=== PATIENT | male | born 1995 | race Caucasian/White ===

== ENCOUNTER 2025-04-21 13:14 | Inpatient (IN) | payer OTHER, SELFPAY ==
[2025-04-21] VITALS (26 sets, daily range): BP systolic 121–141; BP diastolic 72–92; PULSE 57–98; TEMP 36.7–36.9; O2SAT 86–100; BMI 28.3; BMI 28.1
--- NOTE | 2025-04-21 13:22 | ECG_ITS ---
[facility] Test Date: 2025-04-21 Pat Name: MAGDIEL ROBERTS Department: Room: - Gender: Male [employer]: : 1995 Requested By: [id number] Order Number: [id number] Reading MD: MICKY HASTINGS M.D. Measurements Intervals [place] Rate: 84 P: 90 TN: 142 QRS: 75 QRSD: 100 T: 31 QT: 376 QTc: 417 Interpretive Statements 1100 Sinus rhythm 1102 Sinus arrhythmia 9110 normal ECG Compared to ECG 05/09/2018 05:00:06 Junctional rhythm no longer present Electronically Signed On 04-21-2025 17:59:57 EDT by MICKY HASTINGS M.D.
--- NOTE | 2025-04-21 13:22 | ED_ITS ---
HPI - Seizure General Chief Complaint: Seizure Stated Complaint: WITHDRAWL SEIZURE Time Seen by Provider: 04/21/25 13:21 Source: patient Mode of arrival: ambulance History of Present Illness HPI Narrative: The patient is a 30-year-old male who is trying to detox himself from alcohol, drink of alcohol was 2 days ago, patient mentioned that he was able to detox himself few months ago with no difficulty as outpatient. This time apparently according to the girlfriend who called the ambulance the patient had a seizure. The girlfriend was not at the bedside but apparently by the time the EMS arrived the patient was postictal, there was no tongue biting but the patient had a contusion to the back of the head The girlfriend did tell the EMS that the patient had his upper and lower extremity moving and he was unconscious for few seconds The patient at this moment denies any complain Related Data Home Medications ?Medication ?Instructions ?Recorded ?Confirmed bupropion HCl 150 mg 24 hr tablet, 150 mg PO QAM 04/2104/21/25 extended release cetirizine 10 mg tablet 10 mg PO DAILY 04/21/2501/14 Allergies Allergy/AdvReac Type Severity Reaction Status Date / Time venom-honey bee Allergy Severe Unknown Verified 04/21/25 13:21 Review of Systems ROS Status of ROS 10 or more systems reviewed and unremark able except as noted in history and below PFSH PFS Medical History Femur fracture ?S72.90XA - Unspecified fracture of unspecified femur, initial encounter for closed fracture (ICD-10) AA (alcohol abuse) ?F10.10 - Alcohol abuse, uncomplicated (ICD-10) Social History Little interest or pleasure in doing things: not at all Feeling down, depressed, or hopeless: not at all Exam Narrative Exam Narrative: Nurses notes and vital signs reviewed and patient is not hypoxic. General: Well-appearing and in no apparent distress. Skin: Warm, dry, no pallor noted. No rash. Head: Normocephalic, small contusion to the posterior occipital area measuring almost 1 to 2 cm oval in shape with abrasion on top of it, Neck: Supple, non-tender. Eye: Pupils are equal, round and EOMI. No scleral icterus. Ears, Nose, Mouth, and Throat: TM are clear, no nasal mucosal hypertrophy. Oral mucosa is moist, no posterior oropharynx erythema, uvula is mid-line Cardiovascular: Regular Rate and Rhythm without murmur, gallop or rub. Respiratory: No accessory muscle use or respiratory distress. Lungs are clear to auscultation, no wheezing, rales or rhonchi Chest Wall: no tenderness Back: No midline thoracic or lumbar vertebral tenderness. No CVA tenderness Musculoskeletal: normal ROM, no calf or popliteal tenderness, no lower extremity edema/swelling GI: Abdomen is soft, non-distended. Normal bowel sounds. No masses appreciated. No tenderness to palpation. No rebound, guarding, or rigidity noted. Neurological: A&O x4. No cranial nerve dysfunction observed. No truncal ataxia. Moves all extremities. Sensation intact. Psychiatric: Cooperative and interactive. Normal mood and affect. Constitutional Vital Signs, click to edit/add: Last Vital Signs Temp 98.3 F 04/21/25 13:16 Pulse 98 H 04/21/25 13:16 Resp 16 04/21/25 13:16 BP 136/77 04/21/25 13:53 Pulse Ox 98 04/21/25 13:16 O2 Del Method Room Air 04/21/25 13:16 Course Vital Signs Vital signs: Vital Signs Temperature 98.3 F 04/21/25 13:16 Pulse Rate 98 H 04/21/25 13:16 Respiratory Rate 16 04/21/25 13:16 Blood Pressure 140/80 04/21/25 13:16 Pulse Oximetry 98 04/21/25 13:16 Oxygen Delivery Method Room Air 04/21/25 13:16 Temperature 98.3 F 04/21/25 13:16 Pulse Rate 98 H 04/21/25 13:16 Respiratory Rate 16 04/21/25 13:16 Blood Pressure 136/77 04/21/25 13:53 Pulse Oximetry 98 04/21/25 13:16 Oxygen Delivery Method Room Air 04/21/25 13:16 MDM - Seizure MDM Narrative Medical decision making narrative: The patient EKG in the ER showing sinus rhythm with a heart rate of [address] elevation or depression CBC and chemistry showed no acute pathology except with elevated LFTs AST and ALT as well as bilirubin alk phos with elevated which mostly secondary to alcohol abuse The patient in the ER did not have any complaints Since the patient is still in withdrawal he will be admitted for alcohol withdrawal and seizure for observation CT of the head showed no acute pathology Patient case discussed with Dr. Babb and he agreed with above-mentioned plan Lab Data Labs: Lab Results 04/21/25 Range/Units 13:29 WBC 5.0 (4.0-11.0) 10^3/uL RBC 4.81 (4.70-6.10) 10^6/uL Hgb 15.6 (14.0-18.0) g/dL Hct 47.0 (42.0-54.0) % MCV 97.7 H (80.0-94.0) fL MCH 32.4 (25.9-34.0) pg MCHC 33.2 (29.9-35.2) g/dL RDW 12.6 (11.0-15.0) % Plt Count 95 L (150-450) 10^3/uL MPV 11.7 (9.5-13.5) fL Neut % (Auto) 55.5 (43.0-75.0) % Lymph % (Auto) 28.8 (20.5-60.0) % [place] % (Auto) 13.1 H (1.7-12.0) % Eos % (Auto) 0.8 L (0.9-7.0) % Baso % (Auto) 1.6 (0.2-2.0) % Neut # (Auto) 2.8 (1.4-6.5) 10^3/uL Lymph # (Auto) 1.5 (1.2-3.8) 10^3/uL [place] # (Auto) 0.7 (0.3-0.8) 10^3/uL Eos # (Auto) 0.0 (0.0-0.7) 10^3/uL Baso # (Auto) 0.1 (0.0-0.1) 10^3/uL Abs Immat Gran (auto) 0.01 (0.00-0.03) 10^3/uL Imm/Tot Granulo (auto) 0.2 (0.0-0.5) % PT 10.6 (9.0-11.6) sec INR 1.00 Sodium 138 (136-145) mmol/L Potassium 4.1 (3.5-5.1) mmol/L Chloride 98 (98-107) mmol/L Carbon Dioxide 19.1 L (21.0-32.0) mmol/L Anion Gap 25.0 BUN 5.0 L (7.0-18.0) mg/dL Creatinine 1.05 (0.70-1.30) mg/dL Est GFR ( Amer) >60 (>=60 mL/min/1.73m^2) Est GFR (Non-Af Amer) >60 (>=60 mL/min/1.73m^2) BUN/Creatinine Ratio 4.8 Glucose 157 H (74-106) mg/dL Calcium 10.0 (8.5-10.1) mg/dL Magnesium 1.8 (1.8-2.4) mg/dL Total Bilirubin 1.7 H (0.2-1.0) mg/dL AST 236 H (15-37) U/L ALT 170 H (16-63) U/L Alkaline Phosphatase 176 H (46-116) U/L Troponin I High Sens <4.0 L (4.0-76.1) pg/mL Total Protein 8.3 H (6.4-8.2) g/dL Albumin 3.9 (3.4-5.0) g/dL Globulin 4.4 g/dL Albumin/Globulin Ratio 0.9 Ethanol Quant <3 mg/dL Discharge Plan Discharge Chief Complaint: Seizure Clinical Impression: Seizure, Alcohol withdrawal Patient Disposition: Admitted to [facility], OBS Prescriptions / Home Meds: No Action bupropion HCl 150 mg tablet extended release 24 hr 150 mg PO QAM cetirizine 10 mg tablet 10 mg PO DAILY Print Language: [place] Referrals: Physician,Non-Staff, MD [Primary Care Provider] - 1 week
--- NOTE | 2025-04-21 13:23 | CT_ITS ---
The [address] [address] Patient Name: MAGDIEL ROBERTS MRN: [id number] date: 1995 Sex: M Assigned Patient Location: ED.MAIN Current Patient Location: ED.MAIN Accession/Order Number: [id number] Exam Date: 04/21/2025 14:48 Report Date: 04/21/2025 14:54 At the request of: JULI CORNEJO MD Procedure: CT head/brain wo con CT head/brain wo con 04/21/2025 2:21 PM SIGNS AND SYMPTOMS: ^seizure TECHNIQUE:Multi-detector CT axial slices of the brain were obtained without IV contrast. CT was performed with one or more of the following dose reduction techniques: Automated exposure control, adjustment of the mA and/or kV according to patient size, or use of iterative reconstruction technique. COMPARISON: None. FINDINGS: There is no shift of the midline structures, acute intracranial bleeding, mass effects, or evidence of acute ischemia. The ventricular system is normal in size. The brainstem and the cerebellum are unremarkable. The visualized intraorbital contents, the visualized paranasal sinuses, and the infratemporal soft tissues show no acute abnormality. The osseous structures in the skull base and the calvarium show no abnormality. CT/CT head/brain wo con IMPRESSION: Normal noncontrasted CT brain. Impression dictated by: Ankit Whitfield M.D. 04/21/2025 2:54 PM Dictation Location: [place] [address] Electronically authenticated by: [id number] Y Date: 04/21/2025 14:54
[2025-04-21] MEDS: 0.9 % SODIUM CHLORIDE 1,000 ML 1000 ML IV (13:34)
[2025-04-21 13:39] LABS: Basophils Absolute Auto 0.1 10^3/uL (0.0-0.1); Basophils Percent Auto 1.6 % (0.2-2.0); Eosinophils Percent Auto 0.8 % (0.9-7.0); Hemoglobin 15.6 g/dL (14.0-18.0); Immature Granulocytes Abs Auto 0.01 10^3/uL (0.00-0.03); Immature Granulocytes Pct Auto 0.2 % (0.0-0.5); Lymphocytes Absolute Auto 1.5 10^3/uL (1.2-3.8); Lymphocytes Percent Auto 28.8 % (20.5-60.0); Mean Corpuscular HGB Conc 33.2 g/dL (29.9-35.2); Mean Corpuscular Hemoglobin 32.4 pg (25.9-34.0); Mean Corpuscular Volume 97.7 fL (80.0-94.0); Mean Platelet Volume 11.7 fL (9.5-13.5); Monocytes Absolute Auto 0.7 10^3/uL (0.3-0.8); Monocytes Percent Auto 13.1 % (1.7-12.0); Neutrophils Absolute Auto 2.8 10^3/uL (1.4-6.5); Neutrophils Percent Auto 55.5 % (43.0-75.0); Platelet Count 95 10^3/uL (150-450); Red Blood Count 4.81 10^6/uL (4.70-6.10); Red Cell Distribution Width 12.6 % (11.0-15.0)
[2025-04-21 13:49] LABS: Prothrombin Time 10.6 sec (9.0-11.6)
[2025-04-21 13:51] LABS: Alanine Aminotransferase 170 U/L (16-63); Albumin Globulin Ratio 0.9; Albumin Level 3.9 g/dL (3.4-5.0); Alkaline Phosphatase 176 U/L (46-116); Aspartate Amino Transferase 236 U/L (15-37); BUN Creatinine Ratio 4.8; Bilirubin Total 1.7 mg/dL (0.2-1.0); Carbon Dioxide 19.1 mmol/L (21.0-32.0); Chloride 98 mmol/L (98-107); Estimated GFR (African America >60 (>=60 mL/min/1.73m^2); Estimated GFR (Non-African Ame >60 (>=60 mL/min/1.73m^2); Globulin 4.4 g/dL; Glucose 157 mg/dL (74-106); Magnesium 1.8 mg/dL (1.8-2.4); Potassium 4.1 mmol/L (3.5-5.1); Sodium 138 mmol/L (136-145); Total Protein 8.3 g/dL (6.4-8.2)
[2025-04-21 13:53] LABS: Ethanol <3 mg/dL; Troponin I High Sensitivity <4.0 pg/mL (4.0-76.1)
--- NOTE | 2025-04-21 16:38 | P.HP_ITS ---
HPI H&P: HPI History of Present Illness Chief complaint: WITHDRAWL SEIZURE, ETOH WITHDRAWL Narrative: Pt was seen a month ago trying to get off of alcohol and some depression , treated with wellbutrin, Pt had no benefit with wellbutrin from alcohol standpoint but did help his depression. THis am had tonic clonic seizure and presente dto ER - no hx seizure prior when I saw pt on med surg floor, resting comfortably in bed, girlfriend is bedside, medications given so far have helped his tremor and anxiety from his alcohol withdrawal does not member the events of earlier in the day consistent with postictal state Opioid HPI Opioid Management Most Recent Pain and Opioid Data: Last Pain Scale 0 Today, 15:52 Last Pain Assessment Today, 15:52 Last ORT Total Score 10 Today, 15:52 Last ORT Risk Category High Risk Today, 15:52 Review of Systems ROS Status of ROS 10 or more systems reviewed and unremark able except as noted in history and below PFSH PFSH Medical History Femur fracture ?S72.90XA - Unspecified fracture of unspecified femur, initial encounter for closed fracture (ICD-10) AA (alcohol abuse) ?F10.10 - Alcohol abuse, uncomplicated (ICD-10) Family History (Updated 04/21/25 @ 16:21 by Sariah Conte) Uncle Family history of COPD (chronic obstructive pulmonary disease) Grandmother Family history of diabetes mellitus Mother Family history of diabetes mellitus Family history of hypertension Social History (Updated 04/21/25 @ 16:23 by Sariah Conte) Within the past year, how often did you have a drink containing alcohol: 4 or more times a week Within the past year, how many standard drinks containing alcohol did you have on a typical day: 10 or more Within the past year, how often did you have six or more drinks on one occasion: daily or almost daily Total score: 12 Score interpretation: A score of 4 or more indicates drinking is likely to affect patient's safety. Smoking status: Current every day smoker Do you use any of these nicotine containing products: vaping products Second hand tobacco smoke exposure: No Non-prescribed substance use: denies use Previous occupational history: unemployed Known occupational exposures/hazards: No Highest level of school completed/degree received: high school graduate Do you want help with school or training: No Are you now , , , , never or living with a partner: living with partner In a typical week, how many times do you talk on the telephone with family, friends, or neighbors: once per week How often do you get together with friends or relatives: once per week How often do you attend mu-ism or voodoo services: never Do you belong to any clubs or organizations such as mu-ism groups unions, fraternal or athletic groups, or school groups: no Total score: 1 Score interpretation: A score of less than or equal to 1 indicates the most socially isolated. Little interest or pleasure in doing things: not at all Feeling down, depressed, or hopeless: not at all Feel stressed/tense/nervous/anxious/difficulty sleeping: not at all Due to disability, difficulty making decisions: No Do you think of yourself as: straight/heterosexual Gender Identity: male Meds Home Medications and Allergies Home Medications ?Medication ?Instructions ?Recorded ?Confirmed ?Type bupropion HCl 150 mg 24 hr tablet, 150 mg PO QAM 04/2104/21/25 History extended release cetirizine 10 mg tablet 10 mg PO DAILY 04/21/2501/14 History Allergies Allergy/AdvReac Type Severity Reaction Status Date / Time venom-honey bee Allergy Severe Unknown Verified 04/21/25 13:21 Exam Constitutional Vital Signs, click to edit/add: Last Vital Signs Temp 98.1 F 04/21/25 15:52 Pulse 69 04/21/25 15:52 Resp 16 04/21/25 15:52 BP 141/74 04/21/25 15:52 Pulse Ox 98 04/21/25 15:52 O2 Del Method Room Air 04/21/25 15:52 Documenting provider has reviewed patient's vital signs: yes Common normals: no apparent distress Respiratory Common normals: normal respiratory effort and no retractions Cardio Common normals: no JVD and regular rhythm GI Common normals: Normal to inspection, nondistended, normoactive bowel sounds present, soft to palpation and non-tender Extremity Common normals: normal to inspection, full ROM and normal capillary refill Results Labs Labs: Short CBC 04/21/25 Range/Units 13:29 WBC 5.0 (4.0-11.0) 10^3/uL Hgb 15.6 (14.0-18.0) g/dL Hct 47.0 (42.0-54.0) % Plt Count 95 L (150-450) 10^3/uL BMP 04/21/25 13:29 Sodium 138 Potassium 4.1 Chloride 98 Carbon Dioxide 19.1 L BUN 5.0 L Creatinine 1.05 Glucose 157 H Calcium 10.0 Liver Function 04/21/25 Range/Units 13:29 Total Bilirubin 1.7 H (0.2-1.0) mg/dL AST 236 H (15-37) U/L ALT 170 H (16-63) U/L Alkaline Phosphatase 176 H (46-116) U/L Albumin 3.9 (3.4-5.0) g/dL Assessment and Plan Assessment and Plan (1) Alcohol withdrawal: (2) Seizure: (3) AA (alcohol abuse): Plan Admission findings: Patient in a postictal state consistent with seizure, workup in ER unremarkable other than mild dehydration and the elevated liver function test related to alcohol abuse, patient will be admitted for workup and treatment of same Alcohol abuse with hepatitis leading to seizure complicated by the use of Wellbutrin-seizure precautions, IV fluids, aggressively treat the alcohol withdrawal symptoms with phenobarbital and Librium, as needed Valium Alcoholic hepatitis-check liver enzymes in the morning and check ammonia level Depression-will use alternate medication for his depression, Wellbutrin has a risk of seizures Admission status: Patient replaced inpatient status patient having significant alcohol withdrawal syndrome and medically necessary treatment will likely span 2 midnights. Inpatient status
--- NOTE | 2025-04-21 17:09 | PC.NURSE ---
pt refusing aditya kothari at this time
[2025-04-21] MEDS: MULTIVITAMIN TABLET 1 TAB PO (17:13)
[2025-04-21] MEDS: PANTOPRAZOLE SODIUM 40 MG VIAL IV (17:13)
[2025-04-21] MEDS: PHENobarbitaL 32.4 MG TABLET 64.8 MG PO ×2 (17:13→21:10)
[2025-04-21] MEDS: CLORDIAZEPOXIDE HCl 25 MG CAPSULE PO ×2 (17:13→21:11)
[2025-04-21] MEDS: LACTATED RINGER'S SOLUTION 1,000 ML 100 ML IV (17:13)
[2025-04-21] MEDS: THIAMINE MONONITRATE (VIT B1) 100 MG TABLET PO (17:13)
[2025-04-21 17:36] LABS: Ammonia 18 umol/L (11-32)
[2025-04-21 17:37] LABS: Amylase 84 U/L (25-115)
[2025-04-21] MEDS: ROPINIROLE HCL 1 MG TABLET PO (21:10)
[2025-04-21] MEDS: CLONIDINE HCL 0.1 MG TABLET PO (21:11)
[2025-04-22] VITALS (21 sets, daily range): BP systolic 115–139; BP diastolic 69–80; PULSE 40–85; TEMP 36.5–37.1; O2SAT 64–99
[2025-04-22] MEDS: CLORDIAZEPOXIDE HCl 25 MG CAPSULE PO ×5 (01:05→21:16)
[2025-04-22] MEDS: LACTATED RINGER'S SOLUTION 1,000 ML 100 ML IV (03:43)
[2025-04-22] MEDS: PHENobarbitaL 32.4 MG TABLET 64.8 MG PO (05:25)
[2025-04-22 06:04] LABS: Ammonia 27 umol/L (11-32)
[2025-04-22 06:13] LABS: Alanine Aminotransferase 131 U/L (16-63); Albumin Globulin Ratio 0.8; Albumin Level 3.3 g/dL (3.4-5.0); Alkaline Phosphatase 149 U/L (46-116); Amylase 98 U/L (25-115); Anion Gap 15.9; Aspartate Amino Transferase 126 U/L (15-37); BUN Creatinine Ratio 7.6; C Reactive Protein <0.50 mg/dL (<=0.50); Carbon Dioxide 24.7 mmol/L (21.0-32.0); Chloride 103 mmol/L (98-107); Estimated GFR (African America >60 (>=60 mL/min/1.73m^2); Estimated GFR (Non-African Ame >60 (>=60 mL/min/1.73m^2); Glucose 102 mg/dL (74-106); Magnesium 1.8 mg/dL (1.8-2.4); Potassium 3.6 mmol/L (3.5-5.1); Sodium 140 mmol/L (136-145); Total Protein 7.3 g/dL (6.4-8.2)
--- NOTE | 2025-04-22 06:32 | P.PN_ITS ---
Progress Note: Subjective Subjective Interval history: To me he seems more anxious today, but patient denies Exam Constitutional Vital Signs, click to edit/add: Last Vital Signs Temp 98.2 F 04/22/25 04:00 Pulse 61 04/22/25 06:00 Resp 20 04/22/25 04:00 BP 119/73 04/22/25 04:00 Pulse Ox 96 04/22/25 04:00 O2 Del Method Room Air 04/22/25 04:00 Documenting provider has reviewed patient's vital signs: yes Common normals: no apparent distress Respiratory Common normals: normal respiratory effort and no retractions Cardio Common normals: no JVD and regular rhythm GI Common normals: Normal to inspection, nondistended, normoactive bowel sounds present, soft to palpation and non-tender Extremity Common normals: normal to inspection, full ROM and normal capillary refill Neuro Common normals: oriented x3 (Seems more anxious today but patient denies) Progress Note: Objective Labs Labs: Short CBC 04/21/25 Range/Units 13:29 WBC 5.0 (4.0-11.0) 10^3/uL Hgb 15.6 (14.0-18.0) g/dL Hct 47.0 (42.0-54.0) % Plt Count 95 L (150-450) 10^3/uL BMP 04/21/25 04/22/25 13:29 05:30 Sodium 138 140 Potassium 4.1 3.6 Chloride 98 103 Carbon Dioxide 19.1 L 24.7 BUN 5.0 L 5.0 L Creatinine 1.05 0.66 L Glucose 157 H 102 Calcium 10.0 9.0 Liver Function 04/21/25 04/22/25 Range/Units 13:29 05:30 Total Bilirubin 1.7 H 1.0 (0.2-1.0) mg/dL AST 236 H 126 H (15-37) U/L ALT 170 H 131 H (16-63) U/L Alkaline Phosphatase 176 H 149 H (46-116) U/L Albumin 3.9 3.3 L (3.4-5.0) g/dL Progress Note: A&P Assessment and Plan (1) Alcohol withdrawal: (2) Seizure: (3) AA (alcohol abuse): Plan Admission findings: Patient in a postictal state consistent with seizure, workup in ER unremarkable other than mild dehydration and the elevated liver function test related to alcohol abuse, patient will be admitted for workup and treatment of same Alcohol abuse with hepatitis leading to seizure complicated by the use of Wellbutrin-seizure precautions,-can saline lock today, will cut back on the phenobarbital as he states he is not having withdrawal symptoms although he does again seem somewhat anxious to me, maintain Librium and as needed Librium Alcoholic hepatitis-ammonia levels are normal, liver enzymes improved today Depression-start Celexa since he being monitored Admission status: Patient replaced inpatient status patient having significant alcohol withdrawal syndrome and medically necessary treatment will likely span 2 midnights. Inpatient status ?
[2025-04-22 07:14] LABS: Basophils Absolute Auto 0.1 10^3/uL (0.0-0.1); Basophils Percent Auto 1.3 % (0.2-2.0); Eosinophils Absolute Auto 0.1 10^3/uL (0.0-0.7); Eosinophils Percent Auto 2.6 % (0.9-7.0); Hematocrit 40.2 % (42.0-54.0); Immature Granulocytes Abs Auto 0.01 10^3/uL (0.00-0.03); Immature Granulocytes Pct Auto 0.3 % (0.0-0.5); Lymphocytes Absolute Auto 1.1 10^3/uL (1.2-3.8); Lymphocytes Percent Auto 27.1 % (20.5-60.0); Mean Corpuscular HGB Conc 34.8 g/dL (29.9-35.2); Mean Corpuscular Hemoglobin 33.7 pg (25.9-34.0); Mean Corpuscular Volume 96.6 fL (80.0-94.0); Mean Platelet Volume 11.8 fL (9.5-13.5); Monocytes Absolute Auto 0.5 10^3/uL (0.3-0.8); Monocytes Percent Auto 12.8 % (1.7-12.0); Neutrophils Absolute Auto 2.2 10^3/uL (1.4-6.5); Neutrophils Percent Auto 55.9 % (43.0-75.0); Platelet Count 93 10^3/uL (150-450); Red Blood Count 4.16 10^6/uL (4.70-6.10); Red Cell Distribution Width 12.5 % (11.0-15.0); White Blood Count 3.9 10^3/uL (4.0-11.0)
[2025-04-22] MEDS: CETIRIZINE HCL 10 MG TABLET PO (08:27)
[2025-04-22] MEDS: MULTIVITAMIN TABLET 1 TAB PO (08:27)
[2025-04-22] MEDS: THIAMINE MONONITRATE (VIT B1) 100 MG TABLET PO (08:27)
[2025-04-22] MEDS: CLONIDINE HCL 0.1 MG TABLET PO ×2 (08:27→21:16)
--- NOTE | 2025-04-22 08:32 | CM.NOTE ---
Rounds made with Dr. Babb. Dr. Babb reviews findings and treatment plan with Mr. Garzon. No discharge today.
--- NOTE | 2025-04-22 09:18 | SWNOTE1 ---
DIXON and I met pt in room and girlfriend was at bedside. SW asked pt to tell her about his drinking. Pt verbalized drinking every day and drinking beer. SW asked if pt had ever been to counseling for alcohol use or counseling in general and he said no. SW asked if he thought the event that brought him into the hospital was the breaking point for him to stop drinking. Pt said yes. SW asked if he had heard of any outpatient [facility] facilities and would he be interested in either going inpatient or outpatient. Patient said no to both. SW offered [facility] in [place], pt's girlfriend said they would have no way of getting him there. SW asked if it was okay to bring in treatment resources just for them to have and pt said yes. Pt's girlfriend voiced pt's PCP is aware of alcohol use and adjusting medications. At this time patient denies wanting to go to any inpatient rehab facility.
[2025-04-22] MEDS: CITALOPRAM HYDROBROMIDE 20 MG TABLET 10 MG PO (11:27)
[2025-04-22] MEDS: PHENobarbitaL 32.4 MG TABLET PO ×3 (11:27→21:16)
[2025-04-22] MEDS: PANTOPRAZOLE SODIUM 40 MG VIAL IV (17:51)
[2025-04-22] MEDS: ROPINIROLE HCL 1 MG TABLET PO (21:16)
[2025-04-23 01:50] VITALS: PULSE 55
[2025-04-23] MEDS: CLORDIAZEPOXIDE HCl 25 MG CAPSULE PO (02:30)
--- NOTE | 2025-04-23 02:54 | PC.NURSE ---
Another RN in with patient when this senior underwriter entered room. Patient agitated and loud. Other RN was explaining Dr would be in at 7. Patient yelled he wanted to go home. This RN explained again the doctor would be in a few hours. Patient stated I feel like a social experiment patient would not be redirected. This senior underwriter explained for safety reasons patient should stay until morning. Offered for girlfriend to come stay with him. Patient said nope I'm leaving AMA form signed and IV removed.
--- NOTE | 2025-04-23 03:15 | PC.NURSE ---
0300 RN to bedside. Pt yeling out without using call light. Pt states that he wants to know what is going on here. Attempts to reorient patient unsuccessful. Pt becoming beligerent, and verbally aggressive to staff. States Dr Babb can call me at home. I know him, RN notified.
--- NOTE | 2025-04-23 11:07 | CM.DCFOLLOWU ---
Patient left against medical advice
== END 2025-04-23 02:52 | disposition left against medical advice (07) | DRG 770 ==
LOC: ER 15:32 → MS 04-22 06:02
PROVIDERS: Admitting Provider Family Medicine; Emergency Provider Emergency Medicine; Visit Provider Family Medicine
DX: F10.139 Alcohol abuse with withdrawal, unspecified (principal); R56.9 Unspecified convulsions; Z53.29 Procedure and treatment not carried out because of patient's decision for other reasons; F17.290 Nicotine dependence, other tobacco product, uncomplicated; E86.0 Dehydration; R79.89 Other specified abnormal findings of blood chemistry; K70.10 Alcoholic hepatitis without ascites; F32.A Depression, unspecified; D70.9 Neutropenia, unspecified; D69.6 Thrombocytopenia, unspecified
CPT/HCPCS: 36415; 70450; 80053; 80307; 80320; 82140; 82150; 83690; 83735; 84484; 85025; 85610; 86140; 93005; 94761; 99285; 99406